=== PATIENT | female | born 1970 | race Caucasian/White ===

== ENCOUNTER 2017-10-28 15:28 | Emergency (ER) | payer SELFPAY ==
--- NOTE | 2017-10-28 15:55 | ED.PDOC ---
History of Present Illness - General Chief Complaint: Abdominal Pain Stated Complaint: abdominal pain Time Seen by Provider: 10/28/17 15:53 Source: patient Exam Limitations: no limitations - History of Present Illness Initial Comments: the patient is a 47-year-old female presenting to the emergency room secondary to 3 days of hoarseness along withsome mild left lower quadrant discomfort as well as some mild diarrhea. No fevers. She has a runny nose and a mild sore throat as well. She does have a known history of ovarian cysts in the past. She has a history of irregular menses and has been on her hormone replacement therapy from Dr. Lara intermittently. No vomiting. No syncope or near syncope. No shortness of breath. She does have a mild clearing cough and she does obviously smoke. Home Medications: Ambulatory Orders Ciprofloxacin [Cipro] 500 mg PO BID #20 tab 10/28/17 Metronidazole 500 mg PO TID #30 tab 10/28/17 Review of Systems - Review of Systems Constitutional: States: malaise EENTM: States: nose congestion Respiratory: States: cough Cardiology: States: no symptoms reported Gastrointestinal/Abdominal: States: abdominal pain, diarrhea Genitourinary: States: no symptoms reported Musculoskeletal: States: no symptoms reported Skin: States: no symptoms reported Neurological: States: no symptoms reported Endocrine: States: no symptoms reported All other Systems: No Change from Baseline Physical Exam - Physical Exam General Appearance: Alert, Comfortable, No apparent distress Eye Exam: bilateral normal Ears, Nose, Throat: hearing grossly normal, nasal congestion, pharyngeal erythema - ild Neck: non-tender, full range of motion Respiratory: lungs clear, normal breath sounds, no respiratory distress, no accessory muscle use Cardiovascular/Chest: normal peripheral pulses, regular rate, rhythm, no edema Peripheral Pulses: radial,right: 2+, radial,left: 2+, dorsalis pedis,right: 2+, dorsalis pedis,left: 2+ Gastrointestinal/Abdominal: soft, other - mild left lower quadrant discomfort palpation. No rebound or peritoneal signs. Rectal Exam: deferred Back Exam: normal inspection, no CVA tenderness, no vertebral tenderness Extremity: normal range of motion, non-tender, normal inspection, no pedal edema , normal capillary refill Neurologic: manager therapy II-XII nml as tested, no motor/sensory deficits, alert, normal mood/affect Skin Exam: normal color Lymphatic: no adenopathy Progress - Progress Progress: 10/28/17 15:56 the patient is a 47-year-old female presenting to the emergency room secondary to laryngitis as well as some gastroenteritis. While this may be of viral origin in total, the patient will be covered for bacterial possibilities with ciprofloxacin and Flagyl for the next 7 days. She needs to avoid alcohol with these medications. She needs to keep well-hydrated. She needs to avoid smoking. She needs to follow back up with Dr. Alvarado for management of her hormone therapy and her ovarian cysts. ER warnings were given for any significant worsening. She should follow up with her primary care doctor as well towards the end of the week. Departure - Departure Clinical Impression: Gastroenteritis, Laryngitis Disposition: Discharge to Home or Self Care Condition: Fair Departure Forms: ED Discharge - Pt. Copy, Patient Portal Self Enrollment Instructions: Viral Gastroenteritis, DI for Bacterial Gastroenteritis -- Child , DI for Laryngitis Diet: bland diet, regular diet Activity: increase activity as tolerated Prescriptions: Ciprofloxacin [Cipro] 500 mg PO BID #20 tab Metronidazole 500 mg PO TID #30 tab Home Medications: Ambulatory Orders Ciprofloxacin [Cipro] 500 mg PO BID #20 tab 10/28/17 Metronidazole 500 mg PO TID #30 tab 10/28/17 Additional Instructions: the patient is a 47-year-old female presenting to the emergency room secondary to laryngitis as well as some gastroenteritis. While this may be of viral origin in total, the patient will be covered for bacterial possibilities with ciprofloxacin and Flagyl for the next 7 days. She needs to avoid alcohol with these medications. She needs to keep well-hydrated. She needs to avoid smoking. She needs to follow back up with Dr. Alvarado for management of her hormone therapy and her ovarian cysts. ER warnings were given for any significant worsening. She should follow up with her primary care doctor as well towards the end of the week.
[2017-10-28 16:00] VITALS: TEMP 99; O2SAT 98
[2017-10-28 16:06] VITALS: BP 168/91
== END 2017-10-28 16:06 | disposition home or self-care (01) ==
LOC: ER 15:28 → EDSTATUS 15:29 → ER 16:06
DX: K52.9 Noninfective gastroenteritis and colitis, unspecified (principal); J04.0 Acute laryngitis; F17.200 Nicotine dependence, unspecified, uncomplicated; Z79.890 Hormone replacement therapy